=== PATIENT | male | born 1985 | race Caucasian/White ===

== ENCOUNTER → 2017-06-16 | Outpatient (CLI) | payer OTHER ==
[~2017-06-16] MED LIST: GASTROGRAFIN SOLUTION 30ML (Q9963) As Ordered ONE; ISOVUE-370 76% 100ML VIAL (Q9967) As Ordered ONE
--- NOTE | 2017-06-16 14:31 | REP ---
CT abdomen and pelvis with IV but without oral contrast: History: Right-sided abdominal pain. Question hernia versus appendix. CT contrast dose: 100 mL of Isovue 370 is given intravenously. Comparison study: June 06, 2016. CT findings: Preliminary digital produce team lead radiograph demonstrates an unremarkable bowel gas pattern. The lung bases are clear. The liver and spleen are normal in size and homogeneous in texture. The gallbladder is unremarkable. No pancreatic abnormality is seen. No adrenal abnormality is observed. The kidneys enhance symmetrically and are morphologically intact. No retroperitoneal mass or adenopathy is seen. No abdominal wall defect is seen. The patient is status post right inguinal hernia repair. No abnormal fluid collection is seen. Urinary bladder, seminal vesicles, and prostate are unremarkable. A normal appendix is seen in the right lower quadrant. Bone window settings show no bony destructive lesion. Impression: Status post right inguinal hernia repair. No abdominal wall defect is seen. Normal appendix seen. No abdominal or pelvic abnormality. Signed by Jose Díaz MD 06/16/2017 03:25 P
== END ==
LOC: M RAD 11:19
PROVIDERS: ATTEND Physician Assistant Medical
DX: R10.31 Right lower quadrant pain (principal)
CPT/HCPCS: 74177; Q9963; Q9967